=== PATIENT | female | born 1930 ===

== ENCOUNTER 2018-10-19 09:46 | Day surgery (SDC) | payer MEDICARE, MEDICAID ==
[2018-10-05 11:22] VITALS: BMI 33.4
[2018-10-19 10:49] LABS: BASO # 0.03 K/mm3 (0.0-2.0); BASO % 0.4 % (0.0-3.0); EOS # 0.3 (0.0-0.7); EOS % 3.5 % (1.5-5.0); HEMOGLOBIN 10.3 g/dL (12.0-16.0); LYMPH # 1.9 (1.2-3.4); LYMPH % 25.8 % (22.0-35.0); MEAN CELL VOLUME 90.3 fl (80.0-105.0); MEAN CORPUSCULAR HEMOGLOBIN 29.3 pg (25.0-35.0); MEAN CORPUSCULAR HGB CONC 32.4 g/dl (31.0-37.0); MONO # 0.9 (0.1-0.6); RBC 3.52 10^6/uL (3.5-6.1); RED CELL DISTRIBUTION WIDTH 13.6 % (11.5-14.5); WHITE BLOOD COUNT 7.2 10^3/uL (4.5-11.0)
[2018-10-19 10:57] LABS: CALCIUM 9.5 mg/dL (8.4-10.5)
[2018-10-19 10:58] LABS: INR 1.03; PROTHROMBIN TIME 11.6 SECONDS (9.4-12.5)
[2018-10-19] MEDS ORDERED: Midazolam 2 MG/2 ML VIAL ONE (13:29)
[2018-10-19] MEDS ORDERED: Lidocaine 1% Inj (20ml) ONE (13:30)
[2018-10-19] MEDS ORDERED: Midazolam 5 MG/5 ML VIAL IVP ONE (14:15)
[2018-10-19] MEDS ORDERED: Sodium Chloride 0.45% 1,000 ML IV SCH (14:45)
--- NOTE | 2018-10-19 15:07 | US ---
PROCEDURE: Ultrasound-guided right thyroid fine needle aspiration biopsy. CLINICAL HISTORY: Suspicious solitary 1.8 cm hypoechoic hypervascular nodule. Second biopsy. Evaluate for malignancy PHYSICIAN(S): Jeronimo Hewitt M.D. TECHNIQUE: The relative risks and indications for the procedure were explained to the patient and consent obtained. The patient was placed supine on the stretcher with the neck extended and preliminary sonography of the thyroid performed. This reveal a hypervascular 1.8 cm hypoechoic nodule in the mid right thyroid. No additional nodules are seen. The neck was prepped and draped in the usual sterile fashion. Conscious sedation and monitoring were provided throughout the procedure by a nurse. 1% Xylocaine was used to anesthetize the skin and soft tissues at the access site. Three passes with a 22-gauge needle were performed under ultrasound guidance for fine needle aspiration of the 1.8 cm hypoechoic nodule in the right thyroid. The slides were reviewed by pathology and deemed adequate. The patient tolerated the procedure well. IMPRESSION: 1. Ultrasound guided fine needle aspiration of a 1.8 cm hypoechoicnodule in the right thyroid.
[2018-10-19 15:29] VITALS: RESP 18; O2SAT 98
[2018-10-19 15:46] VITALS: TEMP 97.7
[2018-10-19 16:13] VITALS: BP 119/50; PULSE 64
== END 2018-10-19 17:00 | disposition home or self-care (01) ==
LOC: SDS 09:46
PROVIDERS: ATTEND Radiology Vascular & Interventional Radiology
DX: E04.1 Nontoxic single thyroid nodule (principal); I10 Essential (primary) hypertension; I25.10 Atherosclerotic heart disease of native coronary artery without angina pectoris; E11.9 Type 2 diabetes mellitus without complications; Z79.84 Long term (current) use of oral hypoglycemic drugs
CPT/HCPCS: 10005; 36415; 80048; 85025; 85610; 85730; 88173; 88305; J2250 ×2; J2405; J3010; J7030